=== PATIENT | female | born 1990 | race Caucasian/White ===

== ENCOUNTER 2021-01-05 16:48 | Emergency (ER) | payer BC ==
[~2021-01-05] VITALS: Ht 167.6 cm; Wt 61.2 kg
--- NOTE | 2021-01-05 17:06 | NUR ---
30 years old female alert, oriented x4 c/o abdominal pain after swallowing 2nd pill today since 11am
[2021-01-05] MEDS ORDERED: HYDROCODONE/APAP 5/325MG TABLET ONE (17:40)
[2021-01-05] MEDS ORDERED: ONDANSETRON 4 MG TAB.RAPDIS ONE (17:47)
[2021-01-05 17:56] LABS: BASOPHILS % (AUTO) 0.2 % (0.0-2.0); HEMATOCRIT 37 % (33-45); HEMOGLOBIN 12.3 g/dL (11.5-14.8); LYMPHOCYTES # (AUTO) 0.9 /CMM (0.8-4.8); LYMPHOCYTES % (AUTO) 7.6 % (20.0-44.0); MEAN CORPUSCULAR HGB CONC 34 g/dl (31.0-36.0); MEAN CORPUSCULAR VOLUME 92 fL (82-100); MONOCYTES # (AUTO) 0.3 /CMM (0.1-1.30); NEUTROPHILS # (AUTO) 10.4 /CMM (1.8-8.9); NEUTROPHILS % (AUTO) 89.2 % (43.0-81.0); PLATELET COUNT (AUTO) 268 /CMM (150-450); RED BLOOD CELL COUNT(AUTO) 3.99 MIL/uL (4.0-5.2); WHITE BLOOD COUNT (AUTO) 11.7 K/uL (4.3-11.0)
[2021-01-05] MEDS ORDERED: ONDANSETRON 4 MG TAB.RAPDIS SL ONE (18:00)
[2021-01-05] MEDS ORDERED: HYDROCODONE/APAP 5/325MG TABLET PO ONE (18:00)
[2021-01-05 18:06] LABS: CALCIUM, SERUM 8.6 mg/dL (8.5-10.1); CREATININE 0.7 mg/dL (0.6-1.3); POTASSIUM 4.1 mmol/L (3.5-5.1)
[2021-01-05 18:16] LABS: BILIRUBIN,URINE Negative (NEGATIVE); COLOR,URINE AMBER (YELLOW); LEUKOCYTE ESTERASE ,URINE Negative (NEGATIVE); NITRITE, URINE Positive (NEGATIVE); PROTEIN,URINE 30 mg/dl (NEGATIVE); UGLUCOSE Negative (NEGATIVE); UROBILINOGEN,URINE 0.2 EU/dL (0.2)
[2021-01-05 18:27] LABS: RBC,URINE 81-100 /HPF (0-2); WBC,URINE 0-2 /HPF (0-3)
[2021-01-05 18:28] LABS: BACTERIA,URINE Moderate /HPF (None Seen); SQUAMOUS EPITHELIAL CELL,UR 0-2 /HPF (None Seen)
[2021-01-05] MEDS ORDERED: IBUP-1957 PO (18:57)
[2021-01-05] MEDS ORDERED: OXYC-128 PO (18:57)
[2021-01-05 19:01] VITALS: BP 134/78
[2021-01-05] MEDS ORDERED: NITR100C6 PO (19:01)
--- NOTE | 2021-01-05 19:15 | NUR ---
patient condition stable d/c home with instructions after care reviewed understood left er via self alert, oriented x4 ambulatory with steady gait, no pain nausea vomiting.
== END 2021-01-05 19:16 | disposition home or self-care (01) ==
LOC: ER 16:53
DX: O03.9 Complete or unspecified spontaneous abortion without complication (principal); Z88.0 Allergy status to penicillin; Z88.1 Allergy status to other antibiotic agents; Z3A.10 10 weeks gestation of pregnancy
CPT/HCPCS: 36415; 76805; 80048; 81001; 84702; 84703; 85025; 85730; 87086; 99284; Q0162